=== PATIENT | female | born 1985 | race Caucasian/White ===

== ENCOUNTER 2020-06-19 12:43 | Outpatient (REF) | payer MEDICAID, SELFPAY ==
[2020-06-19 13:44] LABS: Hematocrit 38.4 % (37-47); Hemoglobin 12.6 g/dl (12.0-16.0); Mean Corpuscular HGB Conc 32.8 g/dl (31.0-35.0); Mean Corpuscular Hemoglobin 28.9 pg (27.0-33.0); Mean Corpuscular Volume 88.1 fL (80-98); Mean Platelet Volume 10.8 fL (9.4-12.3); Platelet Count 302 X10*3/uL (160-400); Red Blood Count 4.36 X10*6/uL (4.20-5.50); Red Cell Distribution Width 14.6 % (11.0-16.0); White Blood Count 8.3 X10*3/uL (4.8-10.8)
[2020-06-19 14:08] LABS: Alanine Aminotransferase 21 U/L (0-31); Albumin Level 4.4 g/dL (3.5-5.0); Alkaline Phosphatase 77 U/L (39-117); Anion Gap 12 (12-20); Aspartate Amino Transferase 18 U/L (5-31); Bilirubin Direct 0.2 mg/dL (0.0-0.5); Bilirubin Total 0.4 mg/dL (0.0-1.0); Blood Urea Nitrogen 14 mg/dL (9-16); Calcium 9.3 mg/dL (8.4-10.2); Carbon Dioxide 26 mmol/L (22-29); Chloride 105 mmol/L (96-108); Estimated Glomerular Filt Rate > 60; Glucose Random 79 mg/dL (60-115); Potassium 4.6 mmol/l (3.3-5.1); Sodium 138 mmol/L (135-145); Total Protein 7.4 g/dL (6.5-8.0)
[2020-06-19 14:29] LABS: Ferritin 26 ng/mL (10-122); Vitamin D 25-OH Total 32.6 ng/mL (>30)
[2020-06-21 12:26] LABS: HIV RNA PCR Qn Copies <20 NOT DETECTED copies/mL (NOT DETECTED); HIV RNA PCR Qn Log Copies <1.30 NOT DETECTED (NOT DETECTED)
[2020-06-22 21:49] LABS: Vitamin B12 377 pg/mL (200-900)
== END 2020-06-19 12:44 | disposition home or self-care (01) ==
LOC: HO.LAB 12:43
PROVIDERS: PCP Nurse Practitioner Adult Health; Visit Provider Nurse Practitioner Adult Health
DX: B20 Human immunodeficiency virus [HIV] disease (principal); Z98.84 Bariatric surgery status
CPT/HCPCS: 36415; 80048; 80076; 82306; 82607; 82728; 85027; 87536